=== PATIENT | female | born 1990 | race Caucasian/White ===

== ENCOUNTER 2016-10-28 06:04 | Inpatient (IN) | payer BC ==
[2016-10-28 06:07] VITALS: BMI 28.5
[2016-10-28] MEDS ORDERED: HYDROmorphone 2 mg/ml ISec IVP STA (06:13)
--- NOTE | 2016-10-28 06:13 | ED PDOC ---
Arrival/HPI - General Time Seen by Provider: 10/28/16 06:08 Historian: Patient - History of Present Illness Narrative History of Present Illness (Text): 10/28/16 06:08 Mary Alvarez is a 26 year old female, whose past medical history includes recent 2 1/1 weeks ago, who presents to the Emergency department brought in by EMS complaining of epigastric pain radiating to her back since 02: 00 today. Patient reports associated nausea and vomiting. Patient notes she took Tylenol earlier but was unable to keep it down secondary to vomiting. Patient denies any fever, chills, chest pain, shortness of breath, diarrhea, urinary symptoms, back pain, neck pain, headache, dizziness, or any other complaints. Time/Duration: 4-6 hours (02:00 today) Symptom Onset: Gradual Symptom Course: Unchanged Activities at Onset: Rest, Light Context: Home Past Medical History - Provider Review Nursing Documentation Reviewed: Yes - Infectious Disease Hx of Infectious Diseases: None - Past Medical History Past Medical History: No Previous - Psychiatric Hx Substance Use: No - Past Surgical History Past Surgical History: No Previous - Anesthesia Hx Anesthesia: No - Suicidal Assessment Feels Threatened In Home Enviroment: No Family/Social History - Physician Review Nursing Documentation Reviewed: Yes Family/Social History: Unknown Family HX Smoking Status: Never Smoked Hx Alcohol Use: Yes Hx Substance Use: No Hx Substance Use Treatment: No Allergies/Home Meds Allergies/Adverse Reactions: Allergies No Known Allergies Allergy (Verified 10/28/16 06:07) Home Medications: Home Meds Medication Instructions Recorded Confirmed No Known Home Med 10/28/16 10/28/16 Review of Systems - Physician Review All systems were reviewed & negative as marked: Yes - Review of Systems Constitutional: Normal. absent: Fevers Eyes: Normal ENT: Normal Respiratory: Normal. absent: SOB, Cough Cardiovascular: Normal. absent: Chest Pain Gastrointestinal: Abdominal Pain, Nausea, Vomiting. absent: Diarrhea Genitourinary Female: Normal. absent: Dysuria, Frequency, Hematuria, Urine Output Changes Musculoskeletal: Normal. absent: Back Pain, Neck Pain Skin: Normal. absent: Rash Neurological: Normal. absent: Headache, Dizziness Endocrine: Normal Hemo/Lymphatic: Normal Psychiatric: Normal Physical Exam Vital Signs Reviewed: Yes Vital Signs Temp Pulse Resp BP Pulse Ox 10/28/16 09:24 98.4 F 78 18 131/73 99 06/25/17 06:30 98.1 F 81 16 110/58 L 98 Temperature: Afebrile Blood Pressure: Normal Pulse: Regular Respiratory Rate: Normal Appearance: Positive for: Well-Appearing, Non-Toxic, Comfortable Pain Distress: None Mental Status: Positive for: Alert and Oriented X 3 - Systems Exam Head: Present: Atraumatic, Normocephalic Pupils: Present: PERRL Extroacular Muscles: Present: EOMI Conjunctiva: Present: Normal Mouth: Present: Moist Mucous Membranes Neck: Present: Normal Range of Motion Respiratory/Chest: Present: Clear to Auscultation, Good Air Exchange. No: Respiratory Distress, Accessory Muscle Use Cardiovascular: Present: Regular Rate and Rhythm, Normal S1, S2. No: Murmurs Abdomen: Present: Tenderness (Epigastric tenderness), Normal Bowel Sounds. No: Distention, Peritoneal Signs Back: Present: Normal Inspection Upper Extremity: Present: Normal Inspection. No: Cyanosis, Edema Lower Extremity: Present: Normal Inspection. No: Edema Neurological: Present: GCS=15, CN II-XII Intact, Speech Normal Skin: Present: Warm, Dry, Normal Color. No: Rashes Psychiatric: Present: Alert, Oriented x 3, Normal Insight, Normal Concentration Medical Decision Making ED Course and Treatment: 10/28/16 06:08 Impression: 26 year old female complaining of epigastric pain, nausea, and vomiting since 02 :00 today. Differential Diagnosis include but are not limited to: biliary colic vs. gastritis Plan: -- US Gallbladder -- Labs, lipase -- Urinalysis -- IV fluids -- Protonix -- Zofran -- Dilaudid -- Reassess and disposition Prior Visits: Notes and results from previous visits were reviewed. On 03/29/2016, pt was seen in the Emergency department for left-sided suprapubic pain with spotting. Pt was d/c home. Progress Notes: 10/28/16 07:[address] Connor, pending US, labs, re-evaluation, and final disposition. - Lab Interpretations Lab Results: 10/28/16 06:35 10/28/16 06:35 Lab Results 10/28/16 06:45: TSH 3rd Generation 0.50 10/28/16 06:45: Triglycerides 151, Cholesterol 182, LDL Cholesterol Direct 109, HDL Cholesterol 42 10/28/16 06:45: C-Reactive Prot, Quant 0.1 10/28/16 06:35: ESR 14 10/28/16 06:35: Sodium 141, Potassium 3.7, Chloride 105, Carbon Dioxide 24, Anion Gap 16, BUN 12, Creatinine 0.8, Est GFR ( Amer) > 60, Est GFR (Non- Af Amer) > 60, Random Glucose 92, Calcium 9.3, Total Bilirubin 0.5, AST 42 H, ALT 29, Alkaline Phosphatase 88, Total Protein 7.1, Albumin 4.0, Globulin 3.0, Albumin/Globulin Ratio 1.3, Lipase 563 H 10/28/16 06:35: PT 11.4, INR 1.06, APTT 24.0 10/28/16 06:35: WBC 6.9, RBC 4.42, Hgb 9.8 L, Hct 32.6 L, MCV 73.8 L, MCH 22.2 L , MCHC 30.1 L, RDW 19.8 H, Plt Count 375, MPV 9.8, Gran % 56.2, Lymph % (Auto) 36.2 H, [place] % (Auto) 6.2 H, Eos % (Auto) 0.7 L, Baso % (Auto) 0.7, Gran # 3.90 , Lymph # 2.5, [place] # 0.4, Eos # 0.1, Baso # 0.05 - RAD Interpretation Radiology Orders: 10/28/16 07:23 ABDOMEN COMPLETE [US] Stat - Medication Orders Current Medication Orders: Discontinued Medications Gadodiamide (Omniscan No Safepak) Confirm Administered Dose 4,305 mg IV .STK- MED ONE Stop: 10/29/16 09:12 Hydromorphone HCl (Dilaudid) 2 mg IVP STAT STA Stop: 10/28/16 06:14 Last Admin: 10/28/16 06:39 Dose: 2 mg Sodium Chloride (Sodium Chloride 0.9%) 1,000 mls @ 80 mls/hr IV .[id number] JOANNA Last Admin: 10/29/16 02:00 Dose: 80 mls/hr Sodium Chloride (Sodium Chloride 0.9%) 1,000 mls @ 150 mls/hr IV .[id number] JOANNA Famotidine (Pepcid 20mg/50ml Premix) 20 mg in 50 mls @ 100 mls/hr IVPB DAILY JOANNA Last Admin: 10/29/16 09:56 Dose: 100 mls/hr Ondansetron HCl (Zofran Inj) 4 mg IVP STAT STA Stop: 10/28/16 06:14 Last Admin: 10/28/16 06:39 Dose: 4 mg Pantoprazole Sodium (Protonix Inj) 40 mg IVP ONCE STA Stop: 10/28/16 06:14 Last Admin: 10/28/16 06:39 Dose: 40 mg - Transfer of Care Patient signed out to Dr:: tommy mix and dispo - Scribe Statement The provider has reviewed the documentation as recorded by the Scribe Bia Marshall All medical record entries made by the Scribe were at my direction and personally dictated by me. I have reviewed the chart and agree that the record accurately reflects my personal performance of the history, physical exam, medical decision making, and the department course for this patient. I have also personally directed, reviewed, and agree with the discharge instructions and disposition. Disposition/Present on Arrival - Present on Arrival Any Indicators Present on Arrival: No History of DVT/PE: No History of Uncontrolled Diabetes: No Urinary Catheter: No History Surgical Site Infection Following: None - Disposition Have Diagnosis and Disposition been Completed?: Yes Diagnosis: Gallstone pancreatitis Disposition: HOSPITALIZED Disposition Time: 07:00 Condition: STABLE
[2016-10-28] MEDS: Sodium Chloride 0.9% 1,000 ML IV SCH (06:39)
[2016-10-28 06:47] LABS: ADD MANUAL DIFF? NO
[2016-10-28 07:03] LABS: INR 1.06 (0.93-1.08)
--- NOTE | 2016-10-28 07:03 | ED PDOC ---
Physical Exam Vital Signs Reviewed: Yes Vital Signs Temp Pulse Resp BP Pulse Ox 10/28/16 06:30 98.1 F 81 16 110/58 L 98 Temperature: Afebrile Blood Pressure: Normal Pulse: Regular Respiratory Rate: Normal Appearance: Positive for: Well-Appearing, Non-Toxic, Comfortable Pain Distress: None Mental Status: Positive for: Alert and Oriented X 3 Medical Decision Making ED Course and Treatment: 10/28/16 07:02 Case endorsed to me by , Pending ultrasound results. Patient is a 26 year old female, with a recent 2 1/2 weeks ago, presents to the emergency department complaining of epigastric abdominal pain associated with nausea and vomiting since 2 am. today morning. 10/28/16 07:17 On reevaluation, patient is resting comfortably, No acute distress. 10/28/16 08:39 Noted elevated lipase and anemia. No active bleeding or blood in stool. Anemia likely due to recent and . 10/28/16 08:40 Sonographic evaluation of the abdomen. FINDINGS: LIVER: Measures 14.36 by 12.06 cm. Normal echogenicity of the liver parenchyma. No mass. No intrahepatic bile duct dilatation. GALLBLADDER: Multiple gallstones are layered in the gallbladder. There is a small amount of sludge. The gallbladder is distended. There is no wall thickening or fluid surrounding the gallbladder COMMON BILE DUCT: Measures 4 mm. No stones. No dilatation. PANCREAS: Unremarkable as visualized. No mass. No ductal dilatation. RIGHT KIDNEY: Measures 11.05 x 3.78 x 5.04cm. Normal echogenicity. No calculus, mass, or hydronephrosis. LEFT KIDNEY: Measures 10.76 x 5.23 x 5.77cm. Normal echogenicity. No calculus, mass, or hydronephrosis. SPLEEN: Normal in size and contour. No mass. AORTA: No aneurysmal dilatation. IVC: Unremarkable. OTHER FINDINGS: None. IMPRESSION: Multiple gallstones and sludge. Distended gallbladder. 10/28/16 08:41 Case discussed with , covering for , agrees the plan to admit patient to Med/Surg for gall stones and pancreatitis. States he will call the surgeon himself for the consult. 10/28/16 08:44 us shows no cbd dilation, minimally elevated lipase. ?gallstone pancreatitis. pt will need surgical eval, and gi eval. - Lab Interpretations Lab Results: 10/28/16 06:35 10/28/16 06:35 Lab Results 10/28/16 06:35: Sodium 141, Potassium 3.7, Chloride 105, Carbon Dioxide 24, Anion Gap 16, BUN 12, Creatinine 0.8, Est GFR ( Amer) > 60, Est GFR (Non- Af Amer) > 60, Random Glucose 92, Calcium 9.3, Total Bilirubin 0.5, AST 42 H, ALT 29, Alkaline Phosphatase 88, Total Protein 7.1, Albumin 4.0, Globulin 3.0, Albumin/Globulin Ratio 1.3, Lipase 563 H 10/28/16 06:35: PT 11.4, INR 1.06, APTT 24.0 10/28/16 06:35: WBC 6.9, RBC 4.42, Hgb 9.8 L, Hct 32.6 L, MCV 73.8 L, MCH 22.2 L , MCHC 30.1 L, RDW 19.8 H, Plt Count 375, MPV 9.8, Gran % 56.2, Lymph % (Auto) 36.2 H, [place] % (Auto) 6.2 H, Eos % (Auto) 0.7 L, Baso % (Auto) 0.7, Gran # 3.90 , Lymph # 2.5, [place] # 0.4, Eos # 0.1, Baso # 0.05 - RAD Interpretation Radiology Orders: 10/28/16 07:23 ABDOMEN COMPLETE [US] Stat - Medication Orders Current Medication Orders: Sodium Chloride (Sodium Chloride 0.9%) 1,000 mls @ 80 mls/hr IV .[id number] [facility] Last Admin: 10/28/16 06:39 Dose: 80 mls/hr Discontinued Medications Hydromorphone HCl (Dilaudid) 2 mg IVP STAT STA Stop: 10/28/16 06:14 Last Admin: 10/28/16 06:39 Dose: 2 mg Ondansetron HCl (Zofran Inj) 4 mg IVP STAT STA Stop: 10/28/16 06:14 Last Admin: 10/28/16 06:39 Dose: 4 mg Pantoprazole Sodium (Protonix Inj) 40 mg IVP ONCE STA Stop: 10/28/16 06:14 Last Admin: 10/28/16 06:39 Dose: 40 mg Disposition/Present on Arrival - Present on Arrival Any Indicators Present on Arrival: No History of DVT/PE: No History of Uncontrolled Diabetes: No Urinary Catheter: No History of Decub. Ulcer: No History Surgical Site Infection Following: None - Disposition Have Diagnosis and Disposition been Completed?: Yes Diagnosis: Gallstone pancreatitis Disposition: HOSPITALIZED Disposition Time: 09:00 Condition: STABLE
[2016-10-28 07:12] LABS: ALB/GLOB RATIO 1.3 (1.1-1.8); ALKALINE PHOSPHATASE 88 U/L (38-133); ALT/SGPT 29 U/L (7-56); AST/SGOT 42 U/L (15-39); BILIRUBIN,TOTAL 0.5 mg/dL (0.2-1.3); BLOOD UREA NITROGEN 12 mg/dL (7-21); CALCIUM 9.3 mg/dL (8.4-10.5); CARBON DIOXIDE 24 mmol/L (21-33); CHLORIDE 105 mmol/L (95-110); GFR AFRICAN-AMERICAN > 60; GLUCOSE,RANDOM 92 mg/dL (70-110); LIPASE 563 U/L (23-300); POTASSIUM 3.7 mmol/L (3.6-5.0); SODIUM 141 mmol/L (132-148); TOTAL PROTEIN 7.1 g/dL (5.8-8.3)
[2016-10-28 07:16] LABS: BASO # 0.05 K/mm3 (0.0-2.0); BASO % 0.7 % (0.0-3.0); EOS # 0.1 (0.0-0.7); EOS % 0.7 % (1.5-5.0); GRAN % 56.2 % (50.0-68.0); HEMATOCRIT 32.6 % (36.0-48.0); LYMPH # 2.5 (1.2-3.4); LYMPH % 36.2 % (22.0-35.0); MEAN CELL VOLUME 73.8 fL (80.0-105.0); MEAN CORPUSCULAR HEMOGLOBIN 22.2 pg (25.0-35.0); MEAN CORPUSCULAR HGB CONC 30.1 g/dl (31.0-37.0); MEAN PLATELET VOLUME 9.8 fl (7.0-11.0); MONO # 0.4 (0.1-0.6); MONO % 6.2 % (1.0-6.0); PLATELET COUNT 375 10^3/uL (120.0-450.0); RED CELL DISTRIBUTION WIDTH 19.8 % (11.5-14.5); WHITE BLOOD COUNT 6.9 10^3/ul (4.5-11.0)
--- NOTE | 2016-10-28 08:33 | US ---
HISTORY: upper abd pain COMPARISON: None. TECHNIQUE: Sonographic evaluation of the abdomen. FINDINGS: LIVER: Measures 14.36 by 12.06 cm. Normal echogenicity of the liver parenchyma. No mass. No intrahepatic bile duct dilatation. GALLBLADDER: Multiple gallstones are layered in the gallbladder. There is a small amount of sludge. The gallbladder is distended. There is no wall thickening or fluid surrounding the gallbladder COMMON BILE DUCT: Measures 4 mm. No stones. No dilatation. PANCREAS: Unremarkable as visualized. No mass. No ductal dilatation. RIGHT KIDNEY: Measures 11.05 x 3.78 x 5.04cm. Normal echogenicity. No calculus, mass, or hydronephrosis. LEFT KIDNEY: Measures 10.76 x 5.23 x 5.77cm. Normal echogenicity. No calculus, mass, or hydronephrosis. SPLEEN: Normal in size and contour. No mass. AORTA: No aneurysmal dilatation. IVC: Unremarkable. OTHER FINDINGS: None. IMPRESSION: Multiple gallstones and sludge. Distended gallbladder.
--- NOTE | 2016-10-28 11:19 | CP.PCM.CON ---
History of Present Illness - History of Present Illness History of Present Illness: General Surgery Consult Note for Dr. Awad CC: Abdominal Pain X 1 day HPI: This is a 26F s/p 2 weeks ago. She reports a 20lb weight loss since her ended. She reports that last night she had greasy danish food then at 2am she was awake to feed her child when she developed epigastric and back pain. She vomited the contents of her dinner. No fevers or chills at home. She denies any episodes like this in the past. She denies any sensitivity to greasy food in the past. In the ED the pt went for an US that was significant for GB stones and sludge without wall thickening. CBD was normal caliber. At the time of the exam the patient denied any pain. PMH: Denies PSH: ALL:NKDA Social: Denies tobacco, ETOH, Drugs Review of Systems - Review of Systems All systems: reviewed and no additional remarkable complaints except Past Patient History - Infectious Disease Hx of Infectious Diseases: None - Past Social History Smoking Status: Never Smoked - CARDIAC Hx Cardiac Disorders: No - PSYCHIATRIC Hx Psychophysiologic Disorder: No Hx Substance Use: No - SURGICAL HISTORY Hx Surgeries: No Hx Section: Yes ([id number]) - ANESTHESIA Hx Anesthesia: No Meds Allergies/Adverse Reactions: Allergies Allergy/AdvReac Type Severity Reaction Status Date / Time No Known Allergies Allergy Verified 10/28/16 06:07 - Medications Medications: Current Medications Sodium Chloride (Sodium Chloride 0.9%) 1,000 mls @ 80 mls/hr IV .[id number] [facility] Last Admin: 10/28/16 06:39 Dose: 80 mls/hr Physical Exam - Constitutional Appears: Non-toxic, No Acute Distress - Head Exam Head Exam: ATRAUMATIC, NORMOCEPHALIC - Eye Exam Eye Exam: EOMI, Normal appearance - ENT Exam ENT Exam: Mucous Membranes Moist, Normal Exam - Respiratory Exam Respiratory Exam: Clear to Auscultation Bilateral, NORMAL BREATHING PATTERN - Cardiovascular Exam Cardiovascular Exam: REGULAR RHYTHM - GI/Abdominal Exam GI & Abdominal Exam: Soft. absent: Distended, Firm, Guarding, Hernia, Mass, Pulsatile Mass, Rebound, Rigid - Extremities Exam Extremities exam: Positive for: normal inspection - Neurological Exam Neurological exam: Alert, Normal Gait - Psychiatric Exam Psychiatric exam: Normal Affect, Normal Mood - Skin Skin Exam: Dry, Intact Results - Vital Signs Recent Vital Signs: Last Vital Signs Temp 98.4 F 10/28/16 09:24 Pulse 78 10/28/16 09:24 Resp 18 10/28/16 09:24 BP 131/73 10/28/16 09:24 Pulse Ox 99 10/28/16 09:24 - Labs Result Diagrams: 10/28/16 06:35 10/28/16 06:35 - Imaging and Cardiology US - abdomen Status: Report reviewed by me Assessment & Plan - Assessment and Plan (Free Text) Assessment: This is a 26F who is S/P c -section presenting with pancratitis Vital Signs stable IVF Continue pain management serial abdominal exams Appreciate GI recs Continue medical management per primary team D/W Dr. Delmi Gavin PGY-9
[2016-10-28 11:27] LABS: CHOLESTEROL 182 mg/dL (130-200)
--- NOTE | 2016-10-28 15:39 | HP ---
HISTORY OF PRESENT ILLNESS: This is my first acquaintance with the patient who was brought in via the Emergency Room after she experienced abdominal pain and vomiting unrelieved with Tylenol. The abdom inal pain radiated to her back and she had not experienced anything like this in the past. She was d elivered 2-1/2 weeks ago of a healthy baby boy that was as a precaution due to breech deliv ryan. The abdominal pain has been ongoing for a short time before the transport to the Emergency Room and the pain was so severe was impressed and asked the EMS to bring her in to the Emergency Room. She also vomited at home before departure. Was seen in the Emergency Room and given IV fluids , evaluated with labs and ultrasound and we were called to consider a recommendation for admission. The patient had not had a bowel movement on the day before admission and she is usually regular. Aft er the ER evaluation revealed a gallbladder full of stones, but no common bile duct dilatation and th e labs consistent with mild elevated AST of 42 and an I lipase of 563. The recommendation was admit for gallbladder pancreatitis. The vital signs were acceptable and she has not been admitted in the [facility] for any other reasons. MEDICAL HISTORY: She has no antecedent diseases. She was given iron transfusion post-delivery and i s intact with her organs as far as she knows. Still has her tonsils but we are not certain if the soler heatheron removed the appendix during the . She has been doing well and we have a positive famil y history of diet controlled diabetes on the mother's side. Father is healthy. She is monogamous an d we have no other findings in the review of systems. The pain was relieved by Dilaudid and she requ ired no second instillment. There was no blood in her stools prior to this and she is not on iron soler pplements at home. We have no immediate history of allergies. PHYSICAL EXAMINATION: GENERAL: She is alert and oriented to all spheres. SKIN: Does appear somewhat pale. Skin turgor is adequate. No sign of dehydration. HEENT: Conjunctivae are pale. Oral mucosa is moist. Pupils are equally round and reactive to light and accommodation. Extraocular movement is intact. Oral mucosa is moist. NECK: Supple, no cervical lymphadenopathy, no bruit. LUNGS: Clear to auscultation and percussion. HEART: Regular in rhythm. No appreciable murmur. ABDOMEN: Soft, bowel sounds are present. No rebound, no tenderness in the right upper quadrant nor on deep palpation. EXTREMITIES: Have no edema, have full range of motion and are relatively unremarkable. VITAL SIGNS: Blood pressure on admission 131/73, pulse rate of 78, temperature 98.4, O2 sat 99% on r oom air. LABORATORY DATA: Admission labs as follows: Hemoglobin of 9.8 and hematocrit of 32. We have no bas shayan except the story that the patient did receive iron transfusion post-delivery. The indices do r eveal microcytic type of anemia, but she is on no iron supplement. PT/INRs are normal. Chem profile shows an AST of 42, otherwise unremarkable. The addition of lipase was 563. either was not ordered or not yet available. We will trend this after the admission. The abdominal sonogram showed gallstones, none in the common bile duct and gallbladder sludge. She was given one dose of pantopra zole and is on IV fluids of 0.9 normal saline until seen by the medical records director. IMPRESSION: Gallbladder pancreatitis. SECONDARY DIAGNOSES: 1. Status post . 2. Iron deficiency anemia. PLAN OF CARE: Surgical and GI consults have been ordered. Continue IV fluids pending evaluation by the consultants and maybe advance diet later on tonight or early tomorrow morning in followup. The lilia regan was made aware of our plan of care and had no alternative consultants so we have notified ours and we will continue to follow her closely. Derrek Dumont MD cc: [id number] TT: 10/28/2016 15:38:56 [email or web address]
[2016-10-28 18:20] LABS: URINE BILIRUBIN NEGATIVE (NEGATIVE); URINE BLOOD LARGE (NEGATIVE); URINE GLUCOSE (UA) NEGATIVE (NEGATIVE); URINE KETONE NEGATIVE (NEGATIVE); URINE LEUKOCYTE ESTERASE MODERATE Leu/uL (NEGATIVE); URINE PROTEIN TRACE mg/dL (<30 mg/dL); URINE UROBILINOGEN 0.2 E.U./dL (<1 E.U./dL)
[2016-10-28 18:33] LABS: URINE APPEARANCE SL CLOUDY (CLEAR); URINE COLOR YELLOW (YELLOW)
[2016-10-28 18:40] LABS: URINE RBC 25 - 30 /hpf (0-2); URINE WBC 20 - 25 /hpf (0-6)
[2016-10-28 18:41] LABS: URINE BACTERIA MANY (NEG)
[2016-10-28 18:42] LABS: URINE AMORPHOUS SEDIMENT SMALL
--- NOTE | 2016-10-28 23:13 | CON ---
DATE: 10/28/2016 This patient was seen and evaluated earlier. This 26-year-old patient who had delivered a baby 2-1/2 weeks ago by developed acute onset of abdominal pain at 2:00 a.m. The pain was severe. Antelmo collins called EMS to bring the patient to the ER. Now, the patient states the pain has subsided. The p ain is mainly in the epigastric area. Never had experienced similar pain before. No fever, no diarr hea. OTHER PAST MEDICAL HISTORY: History of anemia. FAMILY HISTORY: Noncontributory. REVIEW OF SYSTEMS: Positive as above. Other systems reviewed. PHYSICAL EXAMINATION: GENERAL: The patient is lying on the bed, not in acute distress. VITAL SIGNS: Temperature is 98.5, pulse 67, blood pressure 124/68. HEENT: Atraumatic, anicteric. NECK: Supple. HEART: S1, S2 heard. LUNGS: Bilateral air entry present. ABDOMEN: Soft. The is minimal to mild tenderness on deep palpation in the epigastric area, otherwis e unremarkable. EXTREMITIES: No edema. No cyanosis. NEUROLOGIC: Alert, oriented. Moves all the extremities. LABORATORY DATA: Hemoglobin 9.8, hematocrit , WBC 6.9, and platelets 375. Creatinine 0.8, bloo d sugar 92. LFTs are essentially unremarkable, except AST was 42, lipase is mildly elevated at 563. The patient did have an ultrasound scan of the abdomen, which showed multiple gallstones, but the CB D is only 4 mm. IMPRESSION: This 26-year-old patient admitted with acute onset of abdominal pain mainly in the epiga stric area. Now, the pain has subsided. The patient has a mildly elevated lipase level. The patien t has multiple gallstones. CBD is normal. The likely diagnosis gallstone pancreatitis, probab ly passed a stone. CBD is normal. RECOMMENDATIONS: Would recommend at this point: 1. Start the patient on a clear liquid diet. 2. Request for an MRCP to further evaluate the common bile duct, also MRI of the pancreas to further evaluate. 3. Follow up of the labs in a.m. Thank you very much for allowing us to participate in the care of the patient. We will continue to c losely follow up his care and suggest further management based on the clinical course. Kalina Swenson MD cc: [id number] TT: 10/28/2016 23:12:54 Confirmation # [id number] Dictation # [id number] mn
[2016-10-29] MEDS: Sodium Chloride 0.9% 1,000 ML IV SCH (02:00)
[2016-10-29] MEDS ORDERED: Sodium Chloride 0.9% 1,000 ML IV SCH (05:48)
[2016-10-29 06:40] LABS: ADD MANUAL DIFF? NO
[2016-10-29 07:04] LABS: BASO # 0.04 K/mm3 (0.0-2.0); BASO % 0.8 % (0.0-3.0); EOS # 0.1 (0.0-0.7); GRAN # 2.57 (1.4-6.5); GRAN % 52.1 % (50.0-68.0); HEMATOCRIT 33.4 % (36.0-48.0); LYMPH % 39.8 % (22.0-35.0); MEAN CELL VOLUME 75.1 fL (80.0-105.0); MEAN CORPUSCULAR HGB CONC 29.3 g/dl (31.0-37.0); MEAN PLATELET VOLUME 9.7 fl (7.0-11.0); MONO # 0.3 (0.1-0.6); MONO % 6.3 % (1.0-6.0); PLATELET COUNT 417 10^3/uL (120.0-450.0); RED CELL DISTRIBUTION WIDTH 20.3 % (11.5-14.5); WHITE BLOOD COUNT 4.9 10^3/ul (4.5-11.0)
[2016-10-29 07:22] LABS: ALB/GLOB RATIO 1.2 (1.1-1.8); ALKALINE PHOSPHATASE 98 U/L (38-133); ALT/SGPT 42 U/L (7-56); AMYLASE 88 U/L (35-125); AST/SGOT 37 U/L (15-39); BILIRUBIN,TOTAL 0.6 mg/dL (0.2-1.3); BLOOD UREA NITROGEN 6 mg/dL (7-21); CALCIUM 9.1 mg/dL (8.4-10.5); CARBON DIOXIDE 25 mmol/L (21-33); CHLORIDE 109 mmol/L (98-107); CHOLESTEROL 181 mg/dL (130-200); GFR AFRICAN-AMERICAN > 60; GLUCOSE,RANDOM 72 mg/dL (70-110); LIPASE 66 U/L (23-300); SODIUM 142 mmol/L (132-148); TOTAL PROTEIN 6.7 g/dL (5.8-8.3)
[2016-10-29] MEDS ORDERED: Gadodiamide 287 MG/ML VIAL (15ML) IV ONE (09:11)
[2016-10-29] MEDS ORDERED: Famotidine 20mg/50ml 20 MG/50 ML BAG IVPB SCH (10:00)
--- NOTE | 2016-10-29 10:11 | CP.PCM.PN ---
Subjective - Date & Time of Evaluation Date of Evaluation: 10/29/16 Time of Evaluation: 07:10 - Subjective Subjective: General Surgery Progress Note for Dr. Awad Patient seen and examined at bedside. No acute events overnight. Patient reports her abdominal pain has improved. Patient expressed interest of going home. Patient was made NPO overnight for MRCP today. Denies headache, weakness, fever, chills, shortness of breath, chest pain, nausea or vomiting. Objective - Vital Signs/Intake and Output Vital Signs (last 24 hours): Temp Pulse Resp BP Pulse Ox 98.0 F 80 20 127/81 100 10/29/16 07:30 10/29/16 07:30 10/29/16 07:30 10/29/16 07:30 10/29/16 07:30 Intake and Output: 10/29/16 10/29/16 06:59 18:59 Intake Total 960 Balance 960 - Medications Medications: Current Medications Sodium Chloride (Sodium Chloride 0.9%) 1,000 mls @ 150 mls/hr IV .[id number] [facility] Famotidine (Pepcid 20mg/50ml Premix) 20 mg in 50 mls @ 100 mls/hr IVPB DAILY JOANNA Last Admin: 10/29/16 09:56 Dose: 100 mls/hr - Labs Labs: 10/29/16 06:15 10/29/16 06:15 PT 11.4 Seconds (9.9-11.8) 10/28/16 06:35 INR 1.06 (0.93-1.08) 10/28/16 06:35 APTT 24.0 Seconds (23.7-30.8) 10/28/16 06:35 - Constitutional Appears: Non-toxic, No Acute Distress - Head Exam Head Exam: ATRAUMATIC, NORMAL INSPECTION - Eye Exam Eye Exam: EOMI, Normal appearance - ENT Exam ENT Exam: Mucous Membranes Moist - Respiratory Exam Respiratory Exam: NORMAL BREATHING PATTERN. absent: Respiratory Distress - Cardiovascular Exam Cardiovascular Exam: +S1, +S2 - GI/Abdominal Exam GI & Abdominal Exam: Soft. absent: Distended, Rigid, Hernia - Extremities Exam Extremities Exam: Normal Inspection - Neurological Exam Neurological Exam: Alert, Awake, Oriented x3 - Psychiatric Exam Psychiatric exam: Normal Affect, Normal Mood - Skin Skin Exam: Dry, Intact, Warm Assessment and Plan - Assessment and Plan (Free Text) Assessment: 26 year old female with no significant past medical history except for recent c -section 2 weeks ago presents with pancreatitis Plan: -IVF @150ml/hr -Pending MRCP -Continue pain management -serial abdominal exams -Appreciate GI recs -Continue medical management per primary team -Will d/w Dr. Awad
--- NOTE | 2016-10-29 13:18 | MRI ---
PROCEDURE: Magnetic Resonance Cholangiopancreatography +abdomen with and without contrast HISTORY: Gallstones COMPARISON: None available. TECHNIQUE: Multiplanar, multisequence MR images of the abdomen were obtained, including heavily T2 weighted MRCP images of the biliary system. Rotating maximum intensity projection images of the biliary system were generated. 15 cc of Omniscan FINDINGS: MRCP: The common bile duct is of a normal caliber. No evidence of choledocholithiasis. No intrahepatic biliary ductal dilatation. LIVER: Unremarkable. GALLBLADDER: Multiple gallstones layered in the gallbladder. SPLEEN: Unremarkable. PANCREAS: Unremarkable. ADRENALS: Unremarkable. KIDNEYS: Unremarkable. AORTA: No aneurysm. ASCITES: None. OTHER FINDINGS: No enhancing lesions IMPRESSION: Multiple gallstones. No evidence of common duct stones. Common duct is normal in caliber
[2016-10-29 16:49] VITALS: BP 125/87; PULSE 72; RESP 18; TEMP 98.5; O2SAT 98
--- NOTE | 2016-10-29 16:49 | PN ---
DATE: 10/29/2016 Seen and examined at the bedside earlier today. She is waiting to go for MRCP. Her abdominal pain i s much improved. Her last pain medication was last night. No nausea, vomiting, fevers or reports of overt GI bleed. VITAL SIGNS: Temperature is 98, blood pressure 127/81, pulse 80, respirations 20, 100 on room air. LABORATORY DATA: WBC is 4.9, H and H is 9.8 and 33.4, platelets of 417. Sodium is 142, K 4.0, BUN 6 , creatinine is 0.8. LFTs are within normal limits. Her lipase is 66; it was 563 on admission. MRC P was done and it shows the common bile duct is normal in caliber. No evidence of choledocholithiasi s or intrahepatic ductal dilatation. Liver is unremarkable. She does have multiple gallstones layer ed in the gallbladder. PHYSICAL EXAMINATION: HEENT: Sclerae are anicteric. NECK: Supple. CARDIAC: S1, S2. LUNGS: Sounds are clear. ABDOMEN: With bowel sounds, soft, not distended, nontender on palpation. No rebound or guarding. EXTREMITIES: No edema. NEUROLOGIC: Awake, alert, and oriented. ASSESSMENT: This is a 26-year-old female who came with pancreatitis and abdominal pain. She has no significant past medical history except for a 2 weeks ago. Status post MRCP, she has elizabeth lithiasis, but no abnormalities or stones in the common bile duct. The patient did have a mildly inder vated lipase, which is now normal differential. The likely diagnosis to consider is gallstone pancre atitis, likely passed a stone. Her LFTs are also normal and the CBD is normal on MRCP. PLAN: We advance her diet for dinner. She is on GI prophylaxis and IV fluids at 150. The patient t olerating diet. Can consider discontinuing the fluids and patient may benefit from an elective elizabeth cystectomy, timing as per surgery. The patient was seen and case discussed with Dr. Swenson. Sandhya CAO cc: [id number] TT: 10/29/2016 16:48:48 Confirmation # [id number] Dictation # [id number] mn
--- NOTE | 2016-10-29 23:47 | PN ---
DATE: 10/29/2016 SUBJECTIVE: The patient was admitted for new onset of right epigastric abdominal pain with episodes of vomiting yesterday. She was found to have gallstones on ultrasound. The patient is feeling better this morning. She denies any abdominal pain. She denies any nausea or vomiting. The patient is n.p.o. and undergoing evaluation by MRCP. PHYSICAL EXAMINATION: At the time of evaluation showed: VITAL SIGNS: Temperature normal 98.0, pulse 80, blood pressure 127/81, respiratory rate 20. GENERAL: The patient is comfortable, sitting in chair. Alert, awake, oriented. HEENT: Head is normocephalic, atraumatic. Oral mucosa is moist. NECK: Supple. LUNGS: Clear to auscultation. HEART: Regular rhythm and rate. ABDOMEN: Soft, nontender, nondistended. Bowel sounds are positive. EXTREMITIES: With no edema. LABORATORY TESTS: This morning, CBC with WBC is 4.9, hemoglobin stable at 9.8, hematocrit 33.4. Chemistry with normal electrolytes, normal liver enzymes and back to normal pancreatic enzymes with lipase 66 this morning. Abdominal ultrasound yesterday on admission showed multiple gallstones in the gallbladder , a small amount of sludge. No wall thickening. Common bile duct measuring 4 mm with no stones or dilatation. ASSESSMENT: 1. History of gallbladder colic with most probably a gallbladder pancreatitis , clinically improved. 2. Cholecystitis with multiple gallstones and common bile duct normal. 3. Anemia due to blood loss after recent . PLAN OF TREATMENT: We will continue n.p.o., IV fluids. Follow up MRCP. We will discuss with GI and surgeon further treatment. The patient will need a laparoscopic cholecystectomy in the near future. Francie Schneider MD cc: [id number] TT: 10/29/2016 23:46:28 Confirmation # [id number] Dictation # [id number] brendon FRASER
--- NOTE | 2016-10-30 01:05 | PN ---
DATE: 10/29/2016 ADDENDUM This is an addendum to the GI progress report dictated by Sandhya Gudino APN. This patient was seen and evaluated earlier today. MRCP was reviewed. No stones now. LFTs remain n ormal. The patient has multiple gallstones. The patient would benefit from elective cholecystectomy . The patient is planned to be discharged today. The patient was advised to follow up with the surg campos for gallbladder surgery. The patient advised also to follow up in our office. The patient has a history of iron-deficiency an emia. Thank you very much for allowing us to participate in the care of the patient. Kalina Swenson MD cc: [id number] TT: 10/30/2016 01:05:15 Confirmation # [id number] Dictation # [id number] tn
== END 2016-10-29 19:55 | disposition home or self-care (01) | DRG 440 ==
LOC: ED 06:04 → ERH 08:47 → 5RNO 10:23
PROVIDERS: ADMIT Family Medicine; ATTEND Family Medicine
DX: K85.10 Biliary acute pancreatitis without necrosis or infection (principal); D50.0 Iron deficiency anemia secondary to blood loss (chronic); O99.63 Diseases of the digestive system complicating the puerperium; O90.81 Anemia of the puerperium

== ENCOUNTER 2016-11-24 07:44 | Emergency (ER) | payer BC ==
[2016-11-24 07:44] VITALS: BMI 28.5
[2016-11-24 07:53] VITALS: TEMP 98.3; O2SAT 99
[2016-11-24] MEDS ORDERED: HYDROmorphone 1 mg/ml ISec IVP STA (08:04)
[2016-11-24] MEDS ORDERED: Sodium Chloride 0.9% 1,000 ML IV SCH (08:15)
[2016-11-24 08:20] LABS: BASO # 0.03 K/mm3 (0.0-2.0); BASO % 0.6 % (0.0-3.0); EOS # 0.1 (0.0-0.7); GRAN # 2.28 (1.4-6.5); GRAN % 45.7 % (50.0-68.0); HEMOGLOBIN 11.2 gm/dL (12.0-16.0); LYMPH # 2.3 (1.2-3.4); LYMPH % 46.1 % (22.0-35.0); MEAN CELL VOLUME 71.9 fL (80.0-105.0); MEAN CORPUSCULAR HEMOGLOBIN 22.7 pg (25.0-35.0); MEAN CORPUSCULAR HGB CONC 31.5 g/dl (31.0-37.0); MEAN PLATELET VOLUME 9.5 fl (7.0-11.0); MONO # 0.3 (0.1-0.6); MONO % 6.6 % (1.0-6.0); PLATELET COUNT 289 10^3/uL (120.0-450.0); RBC 4.94 10^6/uL (3.5-6.1); RED CELL DISTRIBUTION WIDTH 18.9 % (11.5-14.5)
[2016-11-24 08:33] LABS: INR 1.03 (0.93-1.08); PARTIAL THROMBOPLASTIN TIME 29.4 Seconds (23.7-30.8); PROTHROMBIN TIME 11.1 Seconds (9.9-11.8)
[2016-11-24 08:35] LABS: ALB/GLOB RATIO 1.3 (1.1-1.8); ALBUMIN 4.3 g/dL (3.0-4.8); ALT/SGPT 68 U/L (7-56); AMYLASE 102 U/L (35-125); AST/SGOT 52 U/L (15-39); BLOOD UREA NITROGEN 10 mg/dL (7-21); CALCIUM 9.3 mg/dL (8.4-10.5); GFR AFRICAN-AMERICAN > 60; GFR NON-AFRICAN AMERICAN > 60; LIPASE 120 U/L (23-300)
--- NOTE | 2016-11-24 08:41 | ED PDOC ---
Arrival/HPI - General Chief Complaint: Abdominal Pain Time Seen by Provider: 11/24/16 07:45 Historian: Patient - History of Present Illness Narrative History of Present Illness (Text): 11/24/16 07:52 Mary Cavanaugh is a 26 year old female, whose past medical history includes gallstone pancreatitis and a recent , who presents to the emergency department complaining of epigastric and diffuse upper quadrant abdominal pain since 05:00 this morning. Patient was in the emergency department a month ago and was diagnosed with gallstone pancreatitis. Patient did not have surgery and was discharged when feeling better with a plan to follow up with her PMD and surgeon. Patient did not experience symptoms again until 05:00 this morning. At present, Patient is slightly nauseous and describes her pain to be 7/8 out of 10. Patient notes that she took Advil prior to arrival which brought little relief. Patient denies any changes in appetite, hematochezia, urinary symptoms, or any other complaint at this time. PMD: Dr. Kramer Time/Duration: 1-3 hours Symptom Onset: Gradual Symptom Course: Unchanged Severity Level: Mild Activities at Onset: Rest Context: Home Past Medical History - Provider Review Nursing Documentation Reviewed: Yes - Infectious Disease Hx of Infectious Diseases: None - Past Medical History Past Medical History: No Previous - Cardiac Hx Cardiac Disorders: No - Musculoskeletal/Rheumatological Hx Falls: No - Gastrointestinal Other/Comment: gallstones - Psychiatric Hx Psychophysiologic Disorder: No Hx Substance Use: No - Past Surgical History Past Surgical History: No Previous - Surgical History Hx Section: Yes ([id number]) - Anesthesia Hx Anesthesia: Yes Hx Anesthesia Reactions: No Hx Malignant Hyperthermia: No - Suicidal Assessment Feels Threatened In Home Enviroment: No Family/Social History - Physician Review Nursing Documentation Reviewed: Yes Family/Social History: No Known Family HX Smoking Status: Never Smoked Hx Alcohol Use: Yes Frequency of alcohol use: Socially Hx Substance Use: No Hx Substance Use Treatment: No Allergies/Home Meds Allergies/Adverse Reactions: Allergies No Known Allergies Allergy (Verified 10/28/16 06:07) Review of Systems - Review of Systems Constitutional: absent: Fatigue, Fevers Eyes: absent: Vision Changes, Eye Pain ENT: absent: Hearing Changes Respiratory: absent: SOB, Cough Cardiovascular: absent: Chest Pain, POLO Gastrointestinal: Abdominal Pain (Epigastric and diffuse Upper quadrant pain), Nausea. absent: Diarrhea, Vomiting, Appetite Changes, Hematochezia, Food Intolerance Genitourinary Female: absent: Dysuria, Hematuria, Urine Output Changes, Vaginal Bleeding Musculoskeletal: absent: Arthralgias, Back Pain Skin: absent: Rash Neurological: absent: Headache, Dizziness, Focal Weakness Endocrine: absent: Diaphoresis Physical Exam - Physical Exam Narrative Physical Exam (Text): Head: Atraumatic. Normocephalic. Eyes: PERRL. EOMI. Conjunctivae are not pale. ENT: Mucous membranes are moist and intact. Oropharynx is clear and symmetric. Neck: Supple. Full ROM. No JVD. No lymphadenopathy. Cardiovascular: Regular rate. Regular rhythm. No murmurs, rubs, or gallops. Distal pulses are 2+ and symmetric. Pulmonary/Chest: No evidence of respiratory distress. Clear to auscultation bilaterally. No wheezing, rales or rhonchi. Abdominal: Diffuse upper abdominal pain. Soft and non-distended. There is no tenderness. No rebound, guarding, or rigidity. No organomegaly. Good bowel sounds. No RLQ pain, no lower abdominal pain. No nathan's signs. Extremities: No edema. No cyanosis. No clubbing. Full range of motion in all extremities. No calf tenderness. Skin: Skin is warm and dry. No petechiae. No purpura. Neurological: Alert, awake, and oriented. Motor and sensory exam intact. Psychiatric: Good eye contact. Normal interaction, affect, and behavior. Vital Signs Reviewed: Yes Vital Signs Temp Pulse Resp BP Pulse Ox 11/24/16 11:00 73 17 112/67 99 11/24/16 09:44 68 17 118/73 99 11/24/16 07:53 98.3 F 64 16 114/76 99 11/24/16 07:47 98.3 F 64 20 114/76 99 Temperature: Afebrile Blood Pressure: Normal Pulse: Regular Respiratory Rate: Normal Appearance: Positive for: Non-Toxic, Comfortable, Uncomfortable Pain Distress: Moderate Mental Status: Positive for: Alert and Oriented X 3 Medical Decision Making ED Course and Treatment: 11/24/16 07:52 Impression: 26 year old female complaining of epigastric and diffuse upper quadrant abdominal pain, sudden onset, since 05:00 this morning. Differential Diagnosis included but are not limited to: pancreatitis, biliary colic, cholecystitis Plan: -- Abdominal Ultrasound -- Urinalysis -- Dilaudid, Pepcid, Zofran, and IV fluids -- Reassess and disposition Prior Visits: Notes and results from previous visits were reviewed. Patient last seen in the ED on 10/29/15 for epigastric pain radiating to her back that day. Patient admitted to hospitalist care for further evaluation. Progress Notes: Patient's prior history reviewed. Recent admission and consultations reviewed. Patient on exam reports sudden onset of upper abdominal pain at 5 am, similar in character to previous episode. No chest pain or sob. Afebrile. States she has not had pain or symptoms for past several weeks until this AM. No vaginal bleeding. She recently gave , is bottle feeding. Pain is localized to epigastric region. No pulsatile masses. I reviewed ordered iv medication with patient, she states no allergy, not breast feeding. 11/24/16 10:00 Abdominal Ultrasound: Dictator : Surjit Coleman MD FINDINGS: LIVER:Measures cm. Normal echogenicity of the liver parenchyma. No mass. No intrahepatic bile duct dilatation. GALLBLADDER:Cholelithiasis. No mural thickening. No pericholecystic fluid. Negative sonographic Nathan sign. COMMON BILE DUCT:Measures 5 mm. No stones. No dilatation. PANCREAS:Unremarkable as visualized. No mass. No ductal dilatation. RIGHT KIDNEY:Measures 10.1cm. Normal echogenicity. No calculus, mass, or hydronephrosis. LEFT KIDNEY:Measures 10.3cm. Normal echogenicity. No calculus, mass, or hydronephrosis. SPLEEN:Normal in size and contour. No mass. AORTA:No aneurysmal dilatation. IVC:Unremarkable. OTHER FINDINGS:None. IMPRESSION: Cholelithiasis without evidence of cholecystitis. Otherwise unremarkable examination. On re-exam, afebrile, no nausea, pain resolved with serial exams. Surgery consulted as she previously was told to follow-up with Dr. Balderrama. Surgery presented to bedside and evaluated patient. As she is pain free, afebrile, no nausea or vomiting, will discharge with instructions to follow-up with surgery, return immediately if pain returns. LFTs reviewed with patient, she is pain free on re-evaluation. 11/24/16 10:[address] Marshall Dumont, covering for PMD Dr. Kramer, who is aware and agreees with patient plan - Lab Interpretations Lab Results: 11/24/16 08:08 11/24/16 08:08 Lab Results 11/24/16 08:08: Sodium 140, Potassium 3.6, Chloride 106, Carbon Dioxide 22, Anion Gap 16, BUN 10, Creatinine 0.7, Est GFR ( Amer) > 60, Est GFR (Non- Af Amer) > 60, Random Glucose 79, Calcium 9.3, Total Bilirubin 0.4, AST 52 H, ALT 68 H, Alkaline Phosphatase 65, Total Protein 7.7, Albumin 4.3, Globulin 3.4 , Albumin/Globulin Ratio 1.3, Amylase 102, Lipase 120 11/24/16 08:08: PT 11.1, INR 1.03, APTT 29.4 11/24/16 08:08: WBC 5.0, RBC 4.94, Hgb 11.2 L, Hct 35.5 L, MCV 71.9 L, MCH 22.7 L, MCHC 31.5, RDW 18.9 H, Plt Count 289, MPV 9.5, Gran % 45.7 L, Lymph % (Auto) 46.1 H, [place] % (Auto) 6.6 H, Eos % (Auto) 1.0 L, Baso % (Auto) 0.6, Gran # 2.28 , Lymph # 2.3, [place] # 0.3, Eos # 0.1, Baso # 0.03 I have reviewed the lab results: Yes - RAD Interpretation Radiology Orders: 11/24/16 08:01 ABDOMEN COMPLETE [US] Stat - Medication Orders Current Medication Orders: Discontinued Medications Famotidine (Pepcid) 20 mg IVP STAT STA Stop: 11/24/16 08:03 Last Admin: 11/24/16 08:25 Dose: 20 mg Hydromorphone HCl (Dilaudid) 1 mg IVP STAT STA Stop: 11/24/16 08:05 Last Admin: 11/24/16 08:25 Dose: 1 mg Sodium Chloride (Sodium Chloride 0.9%) 1,000 mls @ 100 mls/hr IV .Q10H JOANNA Last Admin: 11/24/16 08:11 Dose: 100 mls/hr Ondansetron HCl (Zofran Inj) 4 mg IVP ONCE ONE Stop: 11/24/16 08:03 Last Admin: 11/24/16 08:25 Dose: 4 mg - Scribe Statement The provider has reviewed the documentation as recorded by the Cori Rodriguez Provider Scribe Attestation: All medical record entries made by the Scribe were at my direction and personally dictated by me. I have reviewed the chart and agree that the record accurately reflects my personal performance of the history, physical exam, medical decision making, and the department course for this patient. I have also personally directed, reviewed, and agree with the discharge instructions and disposition. Disposition/Present on Arrival - Present on Arrival Any Indicators Present on Arrival: No History of DVT/PE: No History of Uncontrolled Diabetes: No Urinary Catheter: No History of Decub. Ulcer: No History Surgical Site Infection Following: None - Disposition Have Diagnosis and Disposition been Completed?: Yes Diagnosis: Biliary colic Disposition: HOME/ ROUTINE Disposition Time: 10:00 Patient Plan: Discharge Condition: GOOD Discharge Instructions (ExitCare): Biliary Colic (ED) Additional Instructions: For any fevers, any chest pain, any shortness of breath, any change in character or location of abdominal pain, any return or worsening of abdominal pain, any bloody urine or stool, any abnormal vaginal bleeding, any lightheadedness or dizziness, any persistent worsening of any symptoms, get rechecked. Follow-up with your surgeon as discussed. Prescriptions: Famotidine [Pepcid] 20 mg PO DAILY #5 tab Referrals: Kali Awad MD [Staff Provider] - Follow up with primary
--- NOTE | 2016-11-24 09:51 | US ---
HISTORY: upper abdominal pain COMPARISON: None. TECHNIQUE: Sonographic evaluation of the abdomen. FINDINGS: LIVER: Measures cm. Normal echogenicity of the liver parenchyma. No mass. No intrahepatic bile duct dilatation. GALLBLADDER: Cholelithiasis. No mural thickening. No pericholecystic fluid. Negative sonographic Nathan sign. COMMON BILE DUCT: Measures 5 mm. No stones. No dilatation. PANCREAS: Unremarkable as visualized. No mass. No ductal dilatation. RIGHT KIDNEY: Measures 10.1cm. Normal echogenicity. No calculus, mass, or hydronephrosis. LEFT KIDNEY: Measures 10.3cm. Normal echogenicity. No calculus, mass, or hydronephrosis. SPLEEN: Normal in size and contour. No mass. AORTA: No aneurysmal dilatation. IVC: Unremarkable. OTHER FINDINGS: None. IMPRESSION: Cholelithiasis without evidence of cholecystitis. Otherwise unremarkable examination.
[2016-11-24 09:55] VITALS: RESP 17
--- NOTE | 2016-11-24 10:32 | CP.PCM.CON ---
History of Present Illness - History of Present Illness History of Present Illness: General Surgery Consult note 26 F presents with biliary colic that began at 5am this morning after an alcoholic drink last night with dinner. Patient states she was advised to schedule a follow up appointment from her hospital admission for gallstone pancreatitis for an elective cholecystectomy. She was waiting on clearance from OBGYN for her . Patient denies F/c, N/V, D/C. Admits to abdominal pain that does not radiate. Past Patient History - Infectious Disease Hx of Infectious Diseases: None - Past Social History Smoking Status: Never Smoked - CARDIAC Hx Cardiac Disorders: No - MUSCULOSKELETAL/RHEUMATOLOGICAL Hx Falls: No - GASTROINTESTINAL Other/Comment: gallstones - PSYCHIATRIC Hx Psychophysiologic Disorder: No Hx Substance Use: No - SURGICAL HISTORY Hx Section: Yes ([id number]) - ANESTHESIA Hx Anesthesia: Yes Hx Anesthesia Reactions: No Hx Malignant Hyperthermia: No Meds Home Medications: Home Medication List Medication Instructions Recorded Confirmed Type Famotidine [Pepcid] 20 mg PO DAILY #5 tab 11/24/16 Rx Allergies/Adverse Reactions: Allergies Allergy/AdvReac Type Severity Reaction Status Date / Time No Known Allergies Allergy Verified 10/28/16 06:07 - Medications Medications: Current Medications Sodium Chloride (Sodium Chloride 0.9%) 1,000 mls @ 100 mls/hr IV .Q10H JOANNA Last Admin: 11/24/16 08:11 Dose: 100 mls/hr Physical Exam - Constitutional Appears: Well - Head Exam Head Exam: NORMAL INSPECTION, NORMOCEPHALIC - Eye Exam Eye Exam: EOMI, Normal appearance - ENT Exam ENT Exam: Mucous Membranes Moist - GI/Abdominal Exam GI & Abdominal Exam: Soft. absent: Distended, Firm, Guarding, Organomegaly, Pulsatile Mass, Rebound, Rigid, Tenderness Additional comments: negative Nathan sign. No pain on palpation to deep and superficial palpation. no rebound tenderness Results - Vital Signs Recent Vital Signs: Last Vital Signs Temp 98.3 F 11/24/16 07:53 Pulse 68 11/24/16 09:44 Resp 17 11/24/16 09:44 BP 118/73 11/24/16 09:44 Pulse Ox 99 11/24/16 09:44 - Labs Result Diagrams: 11/24/16 08:08 11/24/16 08:08 Labs: Laboratory Results - last 24 hr 11/24/16 11/24/16 11/24/16 08:08 08:08 08:08 WBC 5.0 RBC 4.94 Hgb 11.2 L Hct 35.5 L MCV 71.9 L MCH 22.7 L MCHC 31.5 RDW 18.9 H Plt Count 289 MPV 9.5 Gran % 45.7 L Lymph % (Auto) 46.1 H [place] % (Auto) 6.6 H Eos % (Auto) 1.0 L Baso % (Auto) 0.6 Gran # 2.28 Lymph # 2.3 [place] # 0.3 Eos # 0.1 Baso # 0.03 PT 11.1 INR 1.03 APTT 29.4 Sodium 140 Potassium 3.6 Chloride 106 Carbon Dioxide 22 Anion Gap 16 BUN 10 Creatinine 0.7 Est GFR ( Amer) > 60 Est GFR (Non-Af Amer) > 60 Random Glucose 79 Calcium 9.3 Total Bilirubin 0.4 AST 52 H ALT 68 H Alkaline Phosphatase 65 Total Protein 7.7 Albumin 4.3 Globulin 3.4 Albumin/Globulin Ratio 1.3 Amylase 102 Lipase 120 Assessment & Plan - Assessment and Plan (Free Text) Assessment: 26F biliary colic Plan: Have patient schedule an appointment with Dr. Awad's office. Patient does not need emergent cholecystectomy at this time Return to ED if symptoms worsen (ie vomitting, diarrhea, fever, chills)
[2016-11-24 11:22] VITALS: BP 112/67; PULSE 73
== END 2016-11-24 11:26 | disposition home or self-care (01) ==
LOC: ED 07:44
DX: K80.50 Calculus of bile duct without cholangitis or cholecystitis without obstruction (principal)
CPT/HCPCS: 76700; 80053; 82150; 83690; 85025; 85610; 85730; 96374; 96375; 99284; J1170; J2405; J7040

== ENCOUNTER 2018-05-31 13:25 | Outpatient (CLI) | payer BC | END 2018-05-31 13:26 | disposition home or self-care (01) | LOC: RAD 13:25 ==